=== PATIENT | female | born 1965 | race Caucasian/White ===

== ENCOUNTER 2020-12-27 04:27 | Day surgery (SDC) | payer OTHER ==
[2020-12-22 14:02] VITALS: BMI 30.2
[2020-12-27] MEDS ORDERED: LIDOCAINE 1%/EPI 1:100000 (20 ML MULTI DOSE VIAL) ONE (07:17)
[2020-12-27] MEDS ORDERED: BUPIVACAINE HCL/PF 0.5% (5MG/ML) 10 ML VIAL ONE (07:18)
[2020-12-27] MEDS ORDERED: PROPOFOL 20 ML ONE (09:02)
[2020-12-27] MEDS ORDERED: MIDAZOLAM HCL 2 MG/2 ML SINGLE DOSE VIAL ONE (09:02)
[2020-12-27] MEDS ORDERED: ACETAMINOPHEN 325 MG TABLET (FP) PO PRN (09:24)
[2020-12-27] MEDS ORDERED: ONDANSETRON 4 MG/2 ML VIAL IVPUSH PRN (09:24)
[2020-12-27] MEDS ORDERED: oxyCODONE HCL 5 MG TABLET PO PRN (09:24)
[2020-12-27] MEDS ORDERED: LACTATED RINGERS SOLUTION 1,000 ML IV SCH (09:30)
[2020-12-27] MEDS ORDERED: DEXAMETHASONE SOD PHOSPHATE 4 MG/1 ML VIAL ONE (09:41)
[2020-12-27] MEDS ORDERED: LIDOCAINE 1%/EPI 1:100000 (20 ML MULTI DOSE VIAL) IJ ONE ×2 (09:42)
[2020-12-27] MEDS ORDERED: BUPIVACAINE HCL/PF 0.5% (5 MG/ML) 30 ML VIAL IJ ONE ×2 (09:43→09:54)
[2020-12-27 13:20] VITALS: BP 138/70; PULSE 75; TEMP 97.3
== END 2020-12-27 13:15 | disposition home or self-care (01) ==
LOC: JASU-SURG 04:27
PROVIDERS: ATTEND Orthopaedic Surgery
PROC: 0SBD4ZZ Excision of Left Knee Joint, Percutaneous Endoscopic Approach (ICD-10-PCS; principal; 2020-12-27 08:45)
DX: S83.242A Other tear of medial meniscus, current injury, left knee, initial encounter (principal); X58.XXXA Exposure to other specified factors, initial encounter; Y93.89 Activity, other specified; Y92.9 Unspecified place or not applicable; Y99.9 Unspecified external cause status; E11.9 Type 2 diabetes mellitus without complications; M06.9 Rheumatoid arthritis, unspecified; Z79.84 Long term (current) use of oral hypoglycemic drugs
CPT/HCPCS: 82962; 94760

== ENCOUNTER 2021-01-20 14:07 | Emergency (ER) | payer OTHER ==
[2021-01-20 14:51] VITALS: BP 124/60; PULSE 83; TEMP 98.9; BMI 29.9
== END 2021-01-20 17:29 | disposition home or self-care (01) ==
LOC: JER 14:07
DX: S80.12XA Contusion of left lower leg, initial encounter (principal)
CPT/HCPCS: 93971-TC; 99284-25

== ENCOUNTER 2024-02-03 04:06 | Day surgery (SDC) | payer OTHER ==
[2024-01-30 10:53] VITALS: BMI 29.2
[2024-02-03] MEDS ORDERED: VASopressin 20 UNITS/ML VIAL IV ONE (10:07)
[2024-02-03] MEDS ORDERED: LIDOCAINE 1%/EPI 1:100000 (20 ML MULTI DOSE VIAL) ONE (10:07)
[2024-02-03] MEDS ORDERED: PROPOFOL 40 ML ONE (10:23)
[2024-02-03] MEDS ORDERED: ONDANSETRON 4 MG/2 ML VIAL ONE (10:24)
[2024-02-03] MEDS ORDERED: MIDAZOLAM HCL 2 MG/2 ML SINGLE DOSE VIAL ONE (10:24)
[2024-02-03] MEDS ORDERED: LIDOCAINE HCL/PF 2% SDV 5ML VIAL ONE (10:24)
[2024-02-03] MEDS ORDERED: KETOROLAC TROMETHAMINE 30 MG/1 ML VIAL ONE (10:25)
[2024-02-03] MEDS ORDERED: DEXAMETHASONE SOD PHOSPHATE 4 MG/1 ML VIAL ONE (10:25)
[2024-02-03] MEDS ORDERED: ACETAMINOPHEN INJECTION 100 ML ONE (10:30)
[2024-02-03] MEDS ORDERED: oxyCODONE HCL 5 MG TABLET PO PRN (10:36)
[2024-02-03] MEDS ORDERED: ONDANSETRON 4 MG/2 ML VIAL IVPUSH PRN (10:36)
[2024-02-03] MEDS ORDERED: PROMETHAZINE HCL 25 MG/1 ML VIAL IVPB PRN (10:36)
[2024-02-03] MEDS ORDERED: ceFAZolin SODIUM 1 GM VIAL ONE (11:19)
[2024-02-03] MEDS: ceFAZolin SODIUM 1 GM VIAL IVPB ONE (11:21)
[2024-02-03] MEDS: LIDOCAINE 2%/EPINEPHRINE 1:100000 (50 ML MD VIAL) INF ONE (11:30)
[2024-02-03] MEDS: LACTATED RINGERS SOLUTION 1,000 ML IV SCH (12:02)
[2024-02-03] MEDS ORDERED: ELECTROLYTE-148 SOLN 1,000 ML IV SCH (12:30)
[2024-02-03 13:43] VITALS: RESP 18
[2024-02-03 15:45] VITALS: BP 115/67; PULSE 89; TEMP 97.6
== END 2024-02-03 15:25 | disposition home or self-care (01) ==
LOC: JASU-SURG 04:06
PROVIDERS: ATTEND Urology
PROC: 0TSD0ZZ Reposition Urethra, Open Approach (ICD-10-PCS; principal; 2024-02-03 11:00)
DX: N39.3 Stress incontinence (female) (male) (principal)
CPT/HCPCS: 57288; C2631; 82962; 88304-TC; 94760; C1771; J0131

== ENCOUNTER 2024-05-17 19:24 | Emergency (ER) | payer OTHER ==
[2024-05-17 19:39] VITALS: BP 146/82; PULSE 91; RESP 18; TEMP 99.1; BMI 28.9
[2024-05-17] MEDS ORDERED: FAMOTIDINE 20 MG/50 ML IVPB 20 MG/50 ML MG IVPB ONE (20:44)
[2024-05-17] MEDS ORDERED: ONDANSETRON 4 MG/2 ML VIAL ONE (20:44)
[2024-05-17] MEDS ORDERED: MAG HYDROX/AL HYDROX/SIMETH 30 ML UNIT-DOSE CUP ONE (20:44)
[2024-05-17] MEDS: MAG HYDROX/AL HYDROX/SIMETH -MYLANTA- ORAL SUSPENSION PO ONE (20:51)
[2024-05-17] MEDS: SODIUM CHLORIDE 0.9% 500 ML INFUS.BAG IV ONE (20:51)
[2024-05-17] MEDS: ONDANSETRON 4 MG/2 ML VIAL IVPUSH ONE (20:52)
[2024-05-17 20:53] LABS: BASO % 0.4 % (0-2.0); EOS % 0.5 % (0-4.5); HEMATOCRIT 45.2 % (32.4-45.2); HEMOGLOBIN 15.3 GM/dL (10.7-15.3); LYMPH % 9.5 % (8-40); MCH 31.4 pg (25.7-33.7); MCHC 33.8 g/dl (32.0-36.0); MEAN CELL VOLUME 92.8 fl (80-96); MEAN PLT VOLUME 10.4 fl (7.5-11.1); MONO % 3.1 % (3.8-10.2); NEUT % 86.5 % (42.8-82.8); PLATELET COUNT 155 10^3/uL (134-434); RBC 4.88 M/mm3 (3.60-5.2); RDW 13.2 % (11.6-15.6); WHITE BLOOD COUNT 12.5 K/mm3 (4.0-10.0)
[2024-05-17 21:13] LABS: POTASSIUM 4.6 mmol/L (3.5-5.1)
[2024-05-17 21:14] LABS: CALCIUM 9.6 mg/dL (8.5-10.1)
[2024-05-17 21:15] LABS: ALBUMIN 4.1 g/dl (3.4-5.0); BLOOD UREA NITROGEN 12.8 mg/dL (7-18)
[2024-05-17 21:18] LABS: CREATININE 0.6 mg/dL (0.55-1.3)
[2024-05-17 21:20] LABS: BILIRUBIN,TOTAL 0.7 mg/dL (0.2-1); TOT PROT 8.3 g/dl (6.4-8.2)
== END 2024-05-17 21:59 | disposition home or self-care (01) ==
LOC: JER 19:24
PROC: 3E033GC Introduction of Other Therapeutic Substance into Peripheral Vein, Percutaneous Approach (ICD-10-PCS; principal; 2024-05-17)
DX: R11.2 Nausea with vomiting, unspecified (principal); Z20.822 Contact with and (suspected) exposure to COVID-19
CPT/HCPCS: 0241U-QW; 36415; 80053; 82962; 85025; 99284-25